=== PATIENT | male | born 1980 | race African-American/Black ===

== ENCOUNTER 2019-04-03 23:57 | Inpatient (IN) | payer MEDICAID ==
[~2019-04-03] VITALS: Ht 177.8 cm; Wt 89.0 kg
[~2019-04-03 23:57] MED LIST: INSULIN
[2019-04-04] MEDS ORDERED: ONDANSETRON HCL 4MG/2ML INJ IV STA (01:30)
[2019-04-04] MEDS ORDERED: FAMOTIDINE 20MG/2ML VIAL IV STA (01:30)
[2019-04-04] MEDS ORDERED: LORAZEPAM 2MG/ML CPJ IV ONE (01:30)
[2019-04-04] MEDS ORDERED: MORPHINE SULFATE 4 MG/ML CPJ (NOT FOR IM USE) IV STA (01:30)
[2019-04-04 02:19] LABS: HEMATOCRIT. 36.1 % (42.0-52.0); MEAN CORPUSCULAR HEMOGLOBIN 30.6 pg (28.0-32.0); PLATELET 242 x1000/uL (130-400); RED BLOOD CELL COUNT 3.92 mill/uL (4.7-6.1); RED CELL DISTRIBUTION WIDTH 14.7 % (11.6-14.6)
[2019-04-04 02:23] LABS: CHLORIDE 107 mEq/L (98-107)
[2019-04-04 02:45] LABS: PLATELET ESTIMATE NORMAL
[2019-04-04] MEDS ORDERED: ZOLPIDEM TARTRATE 5MG TABLET PO PRN (07:30)
[2019-04-04] MEDS ORDERED: ONDANSETRON HCL 4MG/2ML INJ IV PRN (07:30)
[2019-04-04] MEDS ORDERED: GUAIFENESIN 200MG/10ML SUGAR FREE UDC PO PRN (07:30)
[2019-04-04] MEDS ORDERED: DOCUSATE SODIUM 100MG CAPSULE PO PRN (07:30)
[2019-04-04] MEDS ORDERED: IPRATROPIUM/ALBUTEROL 0.5-3(2.5)MG/3ML NEB INH PRN (07:30)
[2019-04-04] MEDS ORDERED: MAGNESIUM/ALUMINUM HYDROXIDE/SIMETHICONE 30ML UDC PO PRN (07:30)
[2019-04-04] MEDS ORDERED: LORAZEPAM 0.5MG TABLET PO PRN (07:30)
[2019-04-04] MEDS ORDERED: CLONIDINE 0.2MG TABLET PO PRN (07:30)
[2019-04-04] MEDS ORDERED: NITROGLYCERIN 0.4MG TABLET SL SL PRN (07:30)
[2019-04-04] MEDS ORDERED: DEXTROSE 50% WATER 50ML SYRINGE IV PRN (07:30)
[2019-04-04] MEDS ORDERED: ACETAMINOPHEN 325MG TABLET PO PRN (07:30)
[2019-04-04 09:00] VITALS: BP 200/112
[2019-04-04] MEDS ORDERED: FAMOTIDINE 20MG TABLET PO SCH ×2 (09:00→10:00)
[2019-04-04] MEDS ORDERED: FOLIC ACID/VITAMIN B COMP W-C TABLET PO SCH (10:00)
[2019-04-04] MEDS ORDERED: METOPROLOL TARTRATE 25MG TABLET PO SCH (10:00)
[2019-04-04] MEDS ORDERED: AMLODIPINE 10MG TABLET PO SCH (10:00)
[2019-04-04 10:50] VITALS: BP 184/84
[2019-04-04] MEDS ORDERED: METOCLOPRAMIDE HCL 5MG TABLET PO SCH (12:20)
[2019-04-04] MEDS ORDERED: BLOOD SUGAR DIAGNOSTIC STRIP TEST SCH (12:20)
[2019-04-04] MEDS ORDERED: SEVELAMER CARBONATE 800 MG TABLET PO SCH (12:50)
[2019-04-04] MEDS ORDERED: INSULIN LISPRO 100 UNITS/ML SUBCUT SCH (12:50)
[2019-04-04] MEDS ORDERED: HYDRALAZINE HCL 50MG TABLET PO SCH (14:00)
== END 2019-04-04 12:22 | disposition left against medical advice (07) | DRG 282 ==
LOC: ER 23:57 → 6WST 04-04 04:24 → EDBEDREQTM 04-04 04:27 → EDBEDREQ 04-04 04:27 → ENRESERV 04-04 07:12
PROVIDERS: ADMIT Internal Medicine; ATTEND Internal Medicine
PROC: 5A1D70Z Performance of Urinary Filtration, Intermittent, Less than 6 Hours Per Day (ICD-10-PCS; principal; 2019-04-04)
DX: K85.90 Acute pancreatitis without necrosis or infection, unspecified (principal); E11.22 Type 2 diabetes mellitus with diabetic chronic kidney disease; I12.0 Hypertensive chronic kidney disease with stage 5 chronic kidney disease or end stage renal disease; N18.6 End stage renal disease; K86.1 Other chronic pancreatitis; D63.8 Anemia in other chronic diseases classified elsewhere; Z76.5 Malingerer [conscious simulation]; Z99.2 Dependence on renal dialysis; Z79.4 Long term (current) use of insulin
CPT/HCPCS: 36415; 74176; 82962; 83036; 93005; 96374; 96375; 99285; J2060; J2270; J2405; J3490